=== PATIENT | female | born 1990 | race Two or more races ===

== ENCOUNTER 2024-04-16 00:39 | Emergency (ER) | payer MEDICAID, OTHER ==
[~2024-04-16] VITALS: Ht 154.9 cm; Wt 87.6 kg
[2024-04-16 01:14] LABS: Urine Bacteria None Seen /hpf (None Seen)
[2024-04-16 01:46] LABS: Urine Blood Negative /uL (Negative); Urine Clarity Clear (Clear); Urine Color Yellow (Yellow); Urine Mucus FEW (None Seen); Urine Protein, UAD TRACE (Negative); Urine Specific Gravity 1.021 (1.001-1.035); Urine Urobilinogen Normal (Negative); Urine WBC 5 /hpf (0 - 5)
[2024-04-16] MEDS: PANTOPRAZOLE 40 MG/10 ML VIAL INJ IV ONE (03:15)
[2024-04-16] MEDS: ONDANSETRON HCL 4 MG/2 ML VIAL IV ONE (03:15)
[2024-04-16 03:29] LABS: Basophils # (auto) 0.1 10 ^3/uL (0-0.2); Basophils % (auto) 0.4 % (0.0-2.0); Eosinophils # (auto) 0 10 ^3/uL (0-0.8); Eosinophils % (auto) 0.1 % (0.0-7.0); Hematocrit 39.8 % (36.0-46.0); Lymphocytes # (auto) 1.6 10 ^3/uL (0.4-5.4); Lymphocytes % (auto) 10.5 % (10.0-50.0); Mean Corpuscular Hemoglobin 31.2 pg (28.0-32.0); Monocytes # (auto) 0.8 10 ^3/uL (0-1.3); Monocytes % (auto) 5.3 % (0.0-12.0); Neutrophils # (auto) 12.6 10 ^3/uL (1.6-8.6); Neutrophils % (auto) 83.7 % (37.0-80.0); Nucleated Red Blood Cells % 0.1 %; Red Blood Cells 4.48 10^6/uL (4.0-5.20); Red Cell Distribution Width 12.9 % (11.8-14.3)
[2024-04-16] MEDS: SODIUM CHLORIDE 0.9% 1,000 ML IV ONE (03:40)
[2024-04-16 03:43] VITALS: TEMP 98.3; O2SAT 96
[2024-04-16 03:45] LABS: Alanine Aminotransferase 122 U/L (7-40); Albumin 4.5 g/dL (3.2-4.8); Alkaline Phosphatase 99 U/L (46-116); Anion Gap 8 (5-15); Aspartate Aminotransferase 208 U/L (13-40); BUN/Creatinine Ratio 11.8 (10.0-20.0); Bilirubin, Total 0.9 mg/dL (0.2-1.0); Blood Urea Nitrogen 10 mg/dL (9-23); Calcium 9.6 mg/dL (8.7-10.4); Carbon Dioxide 29 mmol/L (20-30); Chloride 105 mmol/L (98-107); Glucose 105 mg/dL (74-106); Lipase 37 U/L (12-53); Potassium 4.3 mmol/L (3.5-5.1); Sodium 142 mmol/L (136-145); Total Protein 7.1 g/dL (5.7-8.2)
[2024-04-16] MEDS: MORPHINE SULFATE 4 MG/ML SYR/VIAL IV ONE ×2 (04:57→05:00)
[2024-04-16] MEDS: IOHEXOL 300 MG/ML 100ML BOTTLE IJ ONE (05:04)
[2024-04-16 05:27] VITALS: BP 111/69; PULSE 63; RESP 18
== END 2024-04-16 06:02 | disposition home or self-care (01) ==
LOC: ER 00:39
DX: K52.9 Noninfective gastroenteritis and colitis, unspecified (principal); R74.01 Elevation of levels of liver transaminase levels; R10.13 Epigastric pain; R11.0 Nausea; Z98.890 Other specified postprocedural states
CPT/HCPCS: 36415; 74177; 80053; 81001; 81025; 83690; 85025; 96361; 96374; 96375; 99285; J2270; J2405; J2470; J7030; Q9967

== ENCOUNTER 2025-05-10 09:37 | Inpatient (IN) | payer MEDICAID ==
[~2025-05-10] VITALS: Ht 154.9 cm; Wt 93.1 kg
--- NOTE | 2025-05-10 10:00 | ED.PDOC ---
History of Present Illness HPI Comments This is a 35-year-old female without any significant past medical history presented to the ER with a chief complaint of intermittent abdominal pain and left flank pain for last 6 days prior to this visit. The patient states that abdominal pain started 6 days ago which is burning pain, diffuse in nature, radiates to the left flank, 5/10 aggravated after eating without any relieving factors and associated with nausea and loose stool. She also mentioned that she had same episode last year needed hospital admission but she did not remember the diagnosis. She denies fever, chills, shortness of breath, vomiting, dysuria, hematuria, recent traveling or any positive sick contact. Chief Complaint: Flank Pain Time Seen by MD: 09:41 Allergies: Coded Allergies: NO KNOWN ALLERGIES (Unverified , 04/16/24) Information Source: Patient Mode of Arrival: Ambulatory Severity: Mild Timing: Days Duration: Since onset Prehospital treatment: None Past Medical History PAST MEDICAL HISTORY: Denies Past Medical History (Other): Cholelithiasis Surgical History: WIRE TINNER History: No Pertinent WIRE TINNER History Family History Family History: Reviewed,noncontributory to illness, No family hx of Cancer, No family hx of DM, No family hx of Heart chrystal, No family hx of HTN, No family hx ofKidney chrystal, No family hx of Liver chrystal, No family hx of Lung chrystal, No family hx of Stroke Social History Smoker: Non-Smoker Alcohol: Denies ETOH Use Drugs: Denies Drug Use Lives In: Home Constitutional: denies: chills, diaphoresis, fatigue, fever, malaise, sweats, weakness, others EENTM: denies: blurred vision, double vision, ear bleeding, ear discharge, ear drainage, ear pain, ear ringing, eye pain, eye redness, hearing loss, mouth pain, mouth swelling, nasal discharge, nose bleeding, nose congestion, nose pain, photophobia, tearing, throat pain, throat swelling, voice changes, others Respiratory: denies: cough, hemoptysis, orthopnea, SOB at rest, shortness of breath, SOB with excertion, stridor, wheezing, others Cardiovascular: denies: chest pain, dizzy spells, diaphoresis, Dyspnea on exertion, edema, irregular heart beat, left arm pain, lightheadedness, palpitations, PND, syncope, others Gastrointestinal: reports: abdominal pain, nausea, rectal bleeding; denies: abd omen distended, blood streaked bowels, constipated, diarrhea, dysphagia, difficulty swallowing, hematemesis, melena, poor appetite, poor fluid intake, rectal pain, vomiting, others Genitourinary: denies: abnormal vagina bleeding, burning, dyspareunia, dysuria, flank pain, frequency, hematuria, incontinence, pain, , vagina discharge, urgency, others Neurological: denies: dizziness, fainting, headache, left sided numbness, left sided weakness, numbness, paresthesia, pre-existing deficit, right sided numbness, right sided weakness, seizure, speech problems, tingling, tremors, weakness, others Musculoskeletal: denies: back pain, gout, joint pain, joint swelling, muscle pain, muscle stiffness, neck pain, others Integumetry: denies: bruises, change in color, change in hair/nails, dryness, laceration, lesions, lumps, rash, wounds, others Allergic/Immunocompromised: denies: Difficulty Healing, Frequent Infections, Hives, Itching, others Hematologic/Lymphatic: denies: anemia, blood clots, easy bleeding, easy bruising, swollen glands, others Endocrine: denies: excessive hunger, excessive sweating, excessive thirst, excessive urination, flushing, intolerance to cold, intolerance to heat, unexplained weight gain, unexplained weight loss, others Psychiatric: denies: anxiety, bipolar disorder, depression, hopeless, panic disorder, schizophrenia, sleepless, suicidal, others Physical Exam General Appearance: Normal HEENT: Normal ENT Inspection, Pharynx Normal, TMs Normal Neck: Full Range of Motion, Non-Tender, Normal, Normal Inspection Respiratory: Chest Non-Tender, Lungs Clear, No Accessory Muscle Use, No Respiratory Distress, Normal Breath Sounds Cardiovascular: No Edema, No JVD, No Murmur, No Gallop, Normal Peripheral Pulses, Regular Rate/Rhythm Breast Exam: Deferred Gastrointestinal: No Organomegaly, Non Tender, No Pulsatile Mass, Normal Bowel Sounds, Soft Genitalia: Deferred Pelvic: Deferred Rectal: Deferred Extremities: No calf tenderness, Normal capillary refill, Normal inspection, Normal range of motion, Non-tender, No pedal edema 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 Was a procedure done?: No Differential Dx Considerations may include: GERD, Gastritis, PUD, autoimmune hepatitis, primary biliary cholangitis, pancreatitis, kidney stone, PMD X-Ray, Labs, Meds, VS Vital Signs Date Time Temp Pulse Resp B/P (MAP) Pulse Ox O2 Delivery O2 Flow Rate FiO2 05/10/25 09:42 98.0 84 15 122/78 95 98.0 Lab Test 05/10/25 10:22 05/10/25 10:07 Range/Units White Blood Count 6.8 4.4-10.8 10^3/uL Red Blood Count 4.40 4.0-5.20 10^6/uL Hemoglobin 13.9 12.2-16.2 g/dL Hematocrit 40.0 36.0-46.0 % Mean Corpuscular Volume 90.8 80.0-100.0 fL Mean Corpuscular Hemoglobin 31.7 28.0-32.0 pg Mean Corpuscular Hemoglobin Concent 34.8 32.0-36.0 g/dL Red Cell Distribution Width 13.1 11.8-14.3 % Platelet Count 308 140-450 10^3/uL Mean Platelet Volume 8.3 6.9-10.8 fL Neutrophils (%) (Auto) 76.5 37.0-80.0 % Lymphocytes (%) (Auto) 16.0 10.0-50.0 % Monocytes (%) (Auto) 6.5 0.0-12.0 % Eosinophils (%) (Auto) 0.5 0.0-7.0 % Basophils (%) (Auto) 0.5 0.0-2.0 % Neutrophils # (Auto) 5.2 1.6-8.6 10 ^3/uL Lymphocytes # (Auto) 1.1 0.4-5.4 10 ^3/uL Monocytes # (Auto) 0.4 0-1.3 10 ^3/uL Eosinophils # (Auto) 0 0-0.8 10 ^3/uL Basophils # (Auto) 0 0-0.2 10 ^3/uL Nucleated Red Blood Cells 0.0 % Sodium Level 137 136-145 mmol/L Potassium Level 3.9 3.5-5.1 mmol/L Chloride Level 107 98-107 mmol/L Carbon Dioxide Level 19 L 20-31 mmol/L Anion Gap 11 5-15 Blood Urea Nitrogen 6 L 9-23 mg/dL Creatinine 0.80 0.550-1.02 mg/dL Glomerular Filtration Rate Calc 99 >90 mL/min BUN/Creatinine Ratio 7.5 L 10.0-20.0 Serum Glucose 98 74-106 mg/dL Calcium Level 8.9 8.7-10.4 mg/dL Magnesium Level 2.2 1.6-2.6 mg/dL Total Bilirubin 2.6 H 0.2-1.0 mg/dL Aspartate Amino Transferase (AST) 576 H 13-40 U/L Alanine Aminotransferase (ALT) 754 H 7-40 U/L Alkaline Phosphatase 173 H 46-116 U/L Total Protein 7.1 5.7-8.2 g/dL Albumin 4.8 3.2-4.8 g/dL Lipase 42 12-53 U/L Anti-Nuclear Antibody Screen Pending Hepatitis A Antibody Total Pending Hepatitis B Surface Antigen Pending Hepatitis B Surface Antibody Pending Hepatitis B Core Total Antibody Pending Hepatitis C Antibody Pending Urine Color Dark-yellow Yellow Urine Clarity Clear Clear Urine pH 6.0 5.0-9.0 Urine Specific [place] 1.027 1.001-1.035 Urine Protein Negative Negative Urine Ketones Negative Negative Urine Blood 1+ H Negative /uL Urine Nitrite Negative Negative Urine Bilirubin 2+ H Negative Urine Urobilinogen 3 H Negative mg/dL Urine Leukocyte Esterase Trace Negative /uL Urine RBC 16 0 - 4 /hpf Urine Microscopic WBC 1 0-5 /HPF Urine Squamous Epithelial Cells Few <5 /hpf Urine Bacteria None seen None Seen /hpf Urine Glucose Normal Normal mg/dL X-Ray, Labs, Meds, VS Comment ORDERING PHYSICIAN: SAV ANTON RESIDENT PROCEDURE(s): ABPL - CT AB PEL WO CON-NO ORAL OR IV REASON: Left flank pain ORDER NUMBER(s): [id number], ACCESSION NUMBER(s): [id number] CT CT AB PEL WO CON-NO ORAL OR IV INDICATION: Left flank pain EXAM DATE: 05/10/2025 09:54 AM COMPARISON: CT CT AB PEL WITH IV CON ONLY on DOS: 04/16/24 RADIATION DOSE: CTDIvol: 19.04 mGy, DLP: 1068.65 mGy*cm PROCEDURE: Helical CT images were obtained of the abdomen and pelvis without IV contrast Sagittal and coronal reconstructions are provided. ORAL CONTRAST: None. ADDITIONAL IMAGES / REFORMATS: None All CT scans at this medical facility are performed using dose modulation techniques as appropriate to a performed exam including the following: Automated exposure control was utilized; adjustment of the MA and/or KV according to patient size; and use of iterative reconstruction technique. FINDINGS: LUNG BASE: Normal. LIVER: Normal. GALLBLADDER AND BILIARY TREE: No calcified gallstones. Normal caliber wall. No intra- or extrahepatic biliary ductal dilation. PANCREAS: Normal. SPLEEN: Normal. BOWEL: Normal. Normal appendix. ADRENALS: Normal. KIDNEYS AND URETER: Normal. BLADDER: Normal. REPRODUCTIVE ORGANS: Normal. LYMPH NODES:No lymphadenopathy. PERITONEUM: No ascites or free air. No other fluid collection. VESSELS: Scattered atherosclerotic calcifications are noted. RETROPERITONEUM: Normal. ABDOMINAL WALL: Normal. BONES: Scattered osseous degenerative changes are noted. IMPRESSION: No acute intraabdominal abnormality. No kidney stones. Images Reviewed?: Images reviewed and evaluated by me Time of 1ST Reevaluation: 13:00 Reevaluation 1ST: Unchanged Patient Education/Counseling: Diagnosis, Treatment Family Education/Counseling: No Family Present Comments This is a 35-year-old female presented to the ED with a chief complaint of intermittent diffuse abdominal pain, left flank pain and nausea Physical exam did not reveal any abnormality CBC was unremarkable CMP demonstrated elevated bilirubin, moderately elevated AST, ALT and mildly e levated ALP possible hepatocellular pattern CT abdomen pelvis without contrast revealed normal study Pending hepatitis panel, GERALDINE and ultrasound of the right upper quadrant The patient will need inpatient admission for further evaluation and management SEPSIS Sepsis Screen Date sepsis recognized/suspect: May 10, 2025 Time Sepsis recognized/suspect: 0942 Recent Procedure: No On Antibiotic Therapy: No Respiratory Rate >20: No Heart Rate >90: No Temp<36 C (96.8 F) or >38.3 C: No SBP <90 or MAP <65 mmHG: No New Acute Mental Status Change: No Is the patient on CPAP, BIPAP,: No Physician Orders Ct Ab Pel Wo Con-No Oral Or Iv (05/10/25 09:54) Abdomen Limited (05/10/25 11:49) Comprehensive Hepatitis Panel (05/10/25 11:56) Geraldine; Direct (05/10/25 11:56) Vital Signs Date Time Temp Pulse Resp B/P (MAP) Pulse Ox O2 Delivery O2 Flow Rate FiO2 05/10/25 09:42 98.0 84 15 122/78 95 98.0 Laboratory Tests Test 05/10/25 10:22 White Blood Count 6.8 10^3/uL (4.4-10.8) Departure 1 Departure Time of Disposition: 12:27 Impression: Primary Impression: Hepatitis Additional Impression: Cholelithiasis Disposition: ADMITTED INPATIENT Admit to: Med Surg Condition: Guarded Critical Care Note Critical Care Time?: No Stability Stability form required: SAV Delgado RESIDENT May 10, 2025 10:00
--- NOTE | 2025-05-10 10:30 | DVH ---
CT CT AB PEL WO CON-NO ORAL OR IV INDICATION: Left flank pain EXAM DATE: 05/10/2025 09:54 AM COMPARISON: CT CT AB PEL WITH IV CON ONLY on DOS: 04/16/24 RADIATION DOSE: CTDIvol: 19.04 mGy, DLP: 1068.65 mGy*cm PROCEDURE: Helical CT images were obtained of the abdomen and pelvis without IV contrast Sagittal and coronal reconstructions are provided. ORAL CONTRAST: None. ADDITIONAL IMAGES / REFORMATS: None All C T scans at this medical facility are performed using dose modulation techniques as appropriate to a p erformed exam including the following: Automated exposure control was utilized; adjustment of the MA and/or KV according to patient size; and use of iterative reconstruction technique. FINDINGS: LUNG BASE: Normal. LIVER: Normal. GALLBLADDER AND BILIARY TREE: No calcified gallstones. Normal caliber wall. No intra- or extrahepatic biliary ductal dilation. PANCREAS: Normal. SPLEEN: Normal. BOWEL: Normal. Normal appendix. ADRENALS: Normal. KIDNEYS AND URETER: Normal. BLADDER: Normal. REPRODUCTIVE ORGANS: Normal. LYMPH NODES:No lymphadenopathy. PERITONEUM: No ascites or free air. No other fluid collection. VESSELS: Scattered atherosclerotic calcifications are noted. RETROPERITONEUM: Normal. ABDOMINAL WALL: Normal. BONES: Scattered osseous degenerative changes are noted. IMPRESSION: No acute intraabdominal abnormality. No kidney stones.
[2025-05-10 10:43] LABS: Urine Protein, UAD Negative (Negative)
[2025-05-10 10:45] LABS: Hematocrit 40.0 % (36.0-46.0); Hemoglobin 13.9 g/dL (12.2-16.2); Mean Corpuscular Hemoglobin 31.7 pg (28.0-32.0); Mean Corpuscular Volume 90.8 fL (80.0-100.0); Nucleated Red Blood Cells % 0.0 %
[2025-05-10 10:54] LABS: Albumin 4.8 g/dL (3.2-4.8); Anion Gap 11 (5-15); BUN/Creatinine Ratio 7.5 (10.0-20.0); Calcium 8.9 mg/dL (8.7-10.4); Chloride 107 mmol/L (98-107); Glucose 98 mg/dL (74-106); Magnesium 2.2 mg/dL (1.6-2.6); Potassium 3.9 mmol/L (3.5-5.1); Sodium 137 mmol/L (136-145); Total Protein 7.1 g/dL (5.7-8.2)
[2025-05-10 10:55] LABS: Alanine Aminotransferase 754 U/L (7-40); Alkaline Phosphatase 173 U/L (46-116); Bilirubin, Total 2.6 mg/dL (0.2-1.0); Blood Urea Nitrogen 6 mg/dL (9-23); Carbon Dioxide 19 mmol/L (20-31)
[2025-05-10 11:05] LABS: Lipase 42 U/L (12-53)
--- NOTE | 2025-05-10 13:01 | DVH ---
INDICATION: Abdominal pain TECHNIQUE: Multiple real-time sonographic images of the abdomen were obtained. COMPARISON: None FINDINGS: The liver is homogenous in echogenicity. The liver measures 13cm. No intrahepatic biliary ductal dilatation is noted. The gallbladder wall measures 0.3 cm and is unremarkable. Gallstones are noted. The common duct jay ures 0.6 cm and is unremarkable. No pericholecystic fluid is noted. The right kidney measures 10cm. No hydronephrosis. The pancreas is not well visualized due to obscuration from bowel gas. The visualized portions of the IVC and aorta are grossly unremarkable. IMPRESSION: Gallstones.
[2025-05-10] MEDS ORDERED: HYDROcodone-ACET 5/325MG TAB PO PRN (16:00)
[2025-05-10] MEDS ORDERED: ACETAMINOPHEN 325 MG TAB PO PRN (16:00)
[2025-05-10] MEDS ORDERED: DOCUSATE SOD 100 MG CAP PO PRN (16:00)
--- NOTE | 2025-05-10 16:24 | DVHHP2 ---
History of Present Illness Reason for Visit: Abdominal pain History of Present Illness Cadence Jackson is a 35-year-old female with past medical history of PCOS, who came to the hospital for abdominal and back pain. Patient states she began experiencing abdominal and back pain last (05/05/2025). The pain was intermittent, worse after eating, with associated nausea. Patient also states she has been experiencing bloating, her urine has become an orange color, and she is having frequency, denies any pain with urination. She came to the hospital today due to her symptoms increasing. In ER her bilirubin and liver enzymes are elevated. Ultrasound of abdomen shows cholelithiasis. Patient was admitted in February 2024 for similar complaints. Her liver enzymes were elevated at that times as but, not as elevated as they are now. At that time she was told to follow up with GI as an outpatient. She went to her primary care provider, who did labs, then told her she was fine and would not give her the GI referral. She has sense changed primary care providers and has an appointment later this month. GI: Other (PCOS) Past Surgical History: (x 1) Smoke: No ALCOHOL: none Drugs: None Lives: with Family Domestic Violence: Neg Review of Systems Constitutional: No: Fever, Chills, Sweats, Weakness, Malaise, Other Eyes: No: Pain, Vision change, Conjunctivae inflammation, Eyelid inflammation, Other, Redness ENT: No: Ear pain, Ear discharge, Nose pain, Nose discharge, Nose congestion, Mouth pain, Mouth swelling, Throat pain, Throat swelling, Other Respiratory: No: Cough, Dry, Shortness of breath, SOB with excertion, Wheezing, Hemoptysis, Pleuritic Pain, Sputum, Wheezing, Other Cardiovascular: No: Chest Pain, Palpitations, Orthopnea, Paroxysmal Noc. Dyspnea, Edema, Lt Headedness, Other Gastrointestinal: Nausea, Abdominal Pain, Other (bloating); No: Vomiting, Diarrhea, Constipation, Melena, Hematochezia Genitourinary: No Dysuria, No Frequency, No Incontinence, No Hematuria, No Retention; Other (orange urine) Musculoskeletal: No: other, neck pain, shoulder pain, arm pain, back pain, hand pain, leg pain, foot pain Skin: No: Rash, Lesions, Jaundice, Bruising, Other Neurological: No: Weakness, Numbness, Incoordination, Change in speech, Confusion, Seizures, Other Allergies: Coded Allergies: NO KNOWN ALLERGIES (Unverified , 04/16/24) Medications Current Medications Medications Dose Ordered Sig/[place] Route Start Time Stop Time Status Last Admin Dose Admin Acetaminophen/ Hydrocodone Bitart 1 tab Q4HP PRN PO 05/10/25 16:00 UNV Exam Vital Signs Vital Signs Date Time Temp Pulse Resp B/P (MAP) Pulse Ox O2 Delivery O2 Flow Rate FiO2 05/10/25 09:42 98.0 84 15 122/78 95 98.0 General Appearance: Alert, Oriented X3, Cooperative, mild distress HEENT: Atraumatic, PERRLA, Mucous membr. moist/pink Respiratory: Clear to auscultation, Normal air movement Cardiovascular: Regular rate, Normal S1, Normal S2 Abdominal: Normal bowel sounds, Other (abdominal pain) Extremities: No clubbing, No cyanosis, No edema, Normal pulses, No tenderness/swelling Skin: No rashes, No breakdown, No significant lesion Neuro: Normal speech, Strength at 5/5 X4 ext Psych/Mental Status: Mental status NL, Mood NL Labs/Xrays Labs Test 05/10/25 14:27 05/10/25 10:22 05/10/25 10:07 Range/Units White Blood Count 6.8 4.4-10.8 10^3/uL Red Blood Count 4.40 4.0-5.20 10^6/uL Hemoglobin 13.9 12.2-16.2 g/dL Hematocrit 40.0 36.0-46.0 % Mean Corpuscular Volume 90.8 80.0-100.0 fL Mean Corpuscular Hemoglobin 31.7 28.0-32.0 pg Mean Corpuscular Hemoglobin Concent 34.8 32.0-36.0 g/dL Red Cell Distribution Width 13.1 11.8-14.3 % Platelet Count 308 140-450 10^3/uL Mean Platelet Volume 8.3 6.9-10.8 fL Neutrophils (%) (Auto) 76.5 37.0-80.0 % Lymphocytes (%) (Auto) 16.0 10.0-50.0 % Monocytes (%) (Auto) 6.5 0.0-12.0 % Eosinophils (%) (Auto) 0.5 0.0-7.0 % Basophils (%) (Auto) 0.5 0.0-2.0 % Neutrophils # (Auto) 5.2 1.6-8.6 10 ^3/uL Lymphocytes # (Auto) 1.1 0.4-5.4 10 ^3/uL Monocytes # (Auto) 0.4 0-1.3 10 ^3/uL Eosinophils # (Auto) 0 0-0.8 10 ^3/uL Basophils # (Auto) 0 0-0.2 10 ^3/uL Nucleated Red Blood Cells 0.0 % Sodium Level 137 136-145 mmol/L Potassium Level 3.9 3.5-5.1 mmol/L Chloride Level 107 98-107 mmol/L Carbon Dioxide Level 19 L 20-31 mmol/L Anion Gap 11 5-15 Blood Urea Nitrogen 6 L 9-23 mg/dL Creatinine 0.80 0.550-1.02 mg/dL Glomerular Filtration Rate Calc 99 >90 mL/min BUN/Creatinine Ratio 7.5 L 10.0-20.0 Serum Glucose 98 74-106 mg/dL Calcium Level 8.9 8.7-10.4 mg/dL Magnesium Level 2.2 1.6-2.6 mg/dL Total Bilirubin 2.6 H 0.2-1.0 mg/dL Aspartate Amino Transferase (AST) 576 H 13-40 U/L Alanine Aminotransferase (ALT) 754 H 7-40 U/L Alkaline Phosphatase 173 H 46-116 U/L Total Protein 7.1 5.7-8.2 g/dL Albumin 4.8 3.2-4.8 g/dL Lipase 42 12-53 U/L Urine Color Dark-yellow Yellow Urine Clarity Clear Clear Urine pH 6.0 5.0-9.0 Urine Specific [place] 1.027 1.001-1.035 Urine Protein Negative Negative Urine Ketones Negative Negative Urine Blood 1+ H Negative /uL Urine Nitrite Negative Negative Urine Bilirubin 2+ H Negative Urine Urobilinogen 3 H Negative mg/dL Urine Leukocyte Esterase Trace Negative /uL Urine RBC 16 0 - 4 /hpf Urine Microscopic WBC 1 0-5 /HPF Urine Squamous Epithelial Cells Few <5 /hpf Urine Bacteria None seen None Seen /hpf Urine Glucose Normal Normal mg/dL CT CT AB PEL WO CON-NO ORAL OR IV FINDINGS: LUNG BASE: Normal. LIVER: Normal. GALLBLADDER AND BILIARY TREE: No calcified gallstones. Normal caliber wall. No intra- or extrahepatic biliary ductal dilation. PANCREAS: Normal. SPLEEN: Normal. BOWEL: Normal. Normal appendix. ADRENALS: Normal. KIDNEYS AND URETER: Normal. BLADDER: Normal. REPRODUCTIVE ORGANS: Normal. LYMPH NODES:No lymphadenopathy. PERITONEUM: No ascites or free air. No other fluid collection. VESSELS: Scattered atherosclerotic calcifications are noted. RETROPERITONEUM: Normal. ABDOMINAL WALL: Normal. BONES: Scattered osseous degenerative changes are noted. IMPRESSION: No acute intraabdominal abnormality. No kidney stones. TECHNIQUE: Multiple real-time sonographic images of the abdomen were obtained. FINDINGS: The liver is homogenous in echogenicity. The liver measures 13cm. No intrahepatic biliary ductal dilatation is noted. The gallbladder wall measures 0.3 cm and is unremarkable. Gallstones are noted. The common duct measures 0.6 cm and is unremarkable. No pericholecystic fluid is noted. The right kidney measures 10cm. No hydronephrosis. The pancreas is not well visualized due to obscuration from bowel gas. The visualized portions of the IVC and aorta are grossly unremarkable. IMPRESSION: Gallstones. SEPSIS Sepsis Screen Date sepsis recognized/suspect: May 10, 2025 Time Sepsis recognized/suspect: 941 Recent Procedure: No On Antibiotic Therapy: No Respiratory Rate >20: No Heart Rate >90: No Temp<36 C (96.8 F) or >38.3 C: No SBP <90 or MAP <65 mmHG: No New Acute Mental Status Change: No Is the patient on CPAP, BIPAP,: No Physician Orders Ct Ab Pel Wo Con-No Oral Or Iv (05/10/25 09:54) Abdomen Limited (05/10/25 11:49) Comprehensive Hepatitis Panel (05/10/25 11:56) Geraldine; Direct (05/10/25 11:56) Nm Hida Scan (05/10/25 15:53) Admit (05/10/25 15:53) Code Status (05/10/25 15:53) Hydrocodone-Acet 5/325mg Tab (Gerry 5/32 (05/10/25 16:00) Ondansetron Hcl (Zofran) (05/10/25 16:00) Docusate Sodium Capsule (Colace Capsule) (05/10/25 16:00) Complete Blood Count (05/11/25 04:00) Comprehensive Metabolic Panel (05/11/25 04:00) Condition: Serious (05/10/25 15:53) Acetaminophen Tablet (Tylenol Tablet) (05/10/25 16:00) * Gi Dvh Tool Clerk (05/10/25 15:55) Vital Signs Date Time Temp Pulse Resp B/P (MAP) Pulse Ox O2 Delivery O2 Flow Rate FiO2 05/10/25 09:42 98.0 84 15 122/78 95 98.0 Laboratory Tests Test 05/10/25 10:22 White Blood Count 6.8 10^3/uL (4.4-10.8) Assessment/Plan Assessment/Plan Assessment: Cholelithiasis, Transaminitis, Hyperbilirubinemia, Possible hepatitis, Plan: Admit to Med-Surg, GI consult, HIDA scan, Clear liquid diet, IV hydration, Plan discussed with: Patient My Orders Orders - AMINATA GÓMEZ Procedure Category Date Status Time Nm Hida Scan NM 05/10/25 Logged 15:53 Admit ADMIT 05/10/25 Transmitted 15:53 Code Status CODE 05/10/25 Transmitted 15:53 Hydrocodone-Acet PHA 05/10/25 Transmitted 5/325mg Tab (Gerry 16:00 Ondansetron Hcl PHA 05/10/25 Transmitted (Zofran) 16:00 Docusate Sodium PHA 05/10/25 Transmitted Capsule (Colace 16:00 Complete Blood Count LAB 05/11/25 Verified 04:00 Comprehensive LAB 05/11/25 Verified Metabolic Panel 04:00 Condition: Serious VINCENT 05/10/25 Transmitted 15:53 Acetaminophen Tablet PHA 05/10/25 Transmitted (Tylenol Tablet) 16:00 * Gi Dvh Tool Clerk CONS 05/10/25 Verified 15:55 Date of Service: May 10, 2025 Billing Provider: AMINATA GÓMEZ Common Visit Codes: [id number] INP/OBS CARE (MOD) AMINATA GÓMEZ May 10, 2025 16:23
[2025-05-10 17:38] VITALS: BP 119/61; PULSE 67; TEMP 98.1; O2SAT 99
[2025-05-10] MEDS: SODIUM CHLORIDE 0.9% 1,000 ML IV ONE (18:06)
[2025-05-10 23:06] VITALS: BP 123/78; PULSE 69; RESP 18; TEMP 98.2; O2SAT 98
[2025-05-10] MEDS: ONDANSETRON HCL 4 MG/2 ML VIAL IV PRN (23:46)
[2025-05-11 04:39] LABS: Hematocrit 38.1 % (36.0-46.0); Hemoglobin 13.4 g/dL (12.2-16.2); Mean Corpuscular Hemoglobin 31.8 pg (28.0-32.0); Mean Corpuscular Volume 90.1 fL (80.0-100.0); Nucleated Red Blood Cells % 0.1 %
[2025-05-11 04:47] LABS: Alanine Aminotransferase 570 U/L (7-40); Albumin 4.4 g/dL (3.2-4.8); Alkaline Phosphatase 163 U/L (46-116); Anion Gap 9 (5-15); BUN/Creatinine Ratio 8.0 (10.0-20.0); Bilirubin, Total 1.4 mg/dL (0.2-1.0); Blood Urea Nitrogen 6 mg/dL (9-23); Calcium 8.7 mg/dL (8.7-10.4); Carbon Dioxide 24 mmol/L (20-31); Chloride 108 mmol/L (98-107); Glucose 81 mg/dL (74-106); Potassium 4.0 mmol/L (3.5-5.1); Sodium 141 mmol/L (136-145); Total Protein 6.9 g/dL (5.7-8.2)
[2025-05-11 06:14] VITALS: BP 125/82; PULSE 66; RESP 16; TEMP 98.7; O2SAT 100
[2025-05-11 09:00] VITALS: BP 117/74; PULSE 66; RESP 16; TEMP 97.4; O2SAT 98
[2025-05-11 11:07] LABS: Hepatitis A Total Antibody Positive (Negative); Hepatitis B Surface Antigen Negative (Negative); Hepatitis C Antibody Negative (Negative)
[2025-05-11 13:00] VITALS: BP 114/75; PULSE 74; RESP 20; TEMP 97; O2SAT 98
--- NOTE | 2025-05-11 13:05 | DVH ---
Procedure: NM NM HIDA SCAN Exam Date: 05/11/2025 08:37 AM Clinical History: gallstones, pain, N/V Comparison Study: None Nuclear Medicine Hepatobiliary Scan. Technique: Following the intravenous administration of 6 mCi of technetium 99m labeled Choletec multiple planar abdominal planar images were obtained in anterior projection in 5 minute intervals for45 minutes . Ri ght lateral images were obtained at 45 minutes after injection. Findings: The liver appears grossly normal in size. There is no abnormal persistence of the cardiac or blood po ol activity. There is prompt visualization and excretion of activity into the small bowel. Activity in the gallbladder is seen on delayed films suggesting partial obstruction Impression: 1. Delayed imaging of gallbladder suggesting partial obstruction possibly from chronic cholecystitis. May consider MRCP for further evaluation
--- NOTE | 2025-05-11 14:01 | DVHPN2 ---
Subjective PATIENT CONTINUES TO REPORT HAVING SOME RIGHT BACK PAIN WELL ABDOMINAL PAIN Reviewed: Care Plan, H&P, Labs Changes from previous H/P or p: No Changes General: Per HPI Eyes: No Pain, No Vision change, No Conjunctivae inflammation, No Eyelid inflammation, No Other, No Redness ENT: No Ear pain, No Ear discharge, No Nose pain, No Nose discharge, No Nose congestion, No Mouth pain, No Mouth swelling, No Throat pain, No Throat swelling, No Other Cardiovascular: No Chest Pain, No Palpitations, No Orthopnea, No Paroxysmal Noc. Dyspnea, No Edema, No Lt Headedness, No Other Respiratory: No Cough, No Dry, No Shortness of breath, No SOB with excertion, No Wheezing, No Hemoptysis, No Pleuritic Pain, No Sputum, No Other Gastrointestinal: Nausea; No Vomiting; Abdominal Pain; No Diarrhea, No Constipation, No Melena, No Hematochezia; Other (bloating) Genitourinary: No Dysuria, No Frequency, No Incontinence, No Hematuria, No Retention; Other (orange urine) Musculoskeletal: No other, No neck pain, No shoulder pain, No arm pain, No back pain, No hand pain, No leg pain, No foot pain Skin: No Rash, No Lesions, No Jaundice, No Bruising, No Other Objective Vitals Vital Signs Date Time Temp Pulse Resp B/P (MAP) Pulse Ox O2 Delivery O2 Flow Rate FiO2 05/11/25 13:00 97.0 74 20 114/75 (88) 98 97.0 05/11/25 07:30 Room Air* 0 21 General Appearance: Alert, Oriented X3, Cooperative HEENT: Atraumatic, PERRLA Cardiovascular: Normal S1, Normal S2 Abdomen: Normal bowel sounds, Soft, No tenderness, No hepatospenomegaly Back: Flank Tenderness Musculoskeletal: Normal sensory function, Normal motor function Skin: Dry, Intact Psych/Mental Status: Mental status NL, Mood NL Medications Current Medications Medications Dose Ordered Sig/[place] Route Start Time Stop Time Status Last Admin Dose Admin Acetaminophen/ Hydrocodone Bitart 1 tab Q4HP PRN PO 05/10/25 16:00 Ondansetron HCl 4 mg Q4HP PRN IV 05/10/25 16:00 05/10/25 23:46 4 MG Docusate Sodium 100 mg BIDPRN PRN PO 05/10/25 16:00 Acetaminophen 650 mg Q6HP PRN PO 05/10/25 16:00 Sodium Chloride 1,000 ml @ 75 mls/hr [id number] IV 05/11/25 14:00 UNV Laboratory Results Laboratory Tests 05/11/25 03:50 Chemistry Test 05/11/25 03:50 Albumin 4.4 g/dL (3.2-4.8) Calcium Level 8.7 mg/dL (8.7-10.4) Total Protein 6.9 g/dL (5.7-8.2) LFT Test 05/11/25 03:50 Alanine Aminotransferase (ALT) 570 U/L (7-40) H Alkaline Phosphatase 163 U/L (46-116) H Aspartate Amino Transferase (AST) 291 U/L (13-40) H Total Bilirubin 1.4 mg/dL (0.2-1.0) H Urinalysis Test 05/10/25 10:07 Urine Color Dark-yellow (Yellow) Urine Clarity Clear (Clear) Urine pH 6.0 (5.0-9.0) Urine Specific [place] 1.027 (1.001-1.035) Urine Protein Negative (Negative) Urine Ketones Negative (Negative) Urine Blood 1+ /uL (Negative) H Urine Nitrite Negative (Negative) Urine Bilirubin 2+ (Negative) H Urine Urobilinogen 3 mg/dL (Negative) H Urine Leukocyte Esterase Trace /uL (Negative) Urine RBC 16 /hpf (0 - 4) Urine Microscopic WBC 1 /HPF (0-5) Urine Squamous Epithelial Cells Few /hpf (<5) Urine Bacteria None seen /hpf (None Seen) Urine Glucose Normal mg/dL (Normal) Labs and/or images reviewed: Labs reviewed by me, Image(s) reviewed by me Assessment/Plan Assessment/Plan Impression: -cholelithiasis, rule out choledocholithiasis -obesity -PCOS -transaminitis,? Hepatitis Plan: -lipase normal which rules out gallbladder pancreatitis. Bilirubin significantly elevated with LFTs improving. Rule out CBD stone with MRCP -start IV hydration -start Flagyl -pain management -clear liquid diet -GI consultation -surgical consultation -repeat labs in a.m. Total time spent with patient discussing and formulating plan of care: 35 minutes. This medical document was created using an electronic medical record system with [employer] system. Although this document has been carefully reviewed, there may still be some phonetic and typographical errors. These areas are purely typographical due to imperfections of the software programs, and do not reflect any compromise in the patient's medical care. Plan discussed with: Patient, Other (RN) My Orders Orders - BRYNN ANAYA NP Procedure Category Date Status Time Mrcp Mri MRI 05/11/25 Logged 13:38 * Surgical Consult CONS 05/11/25 Transmitted Sodium Chloride 0.9% PHA 05/11/25 Logged 14:00 Comprehensive LAB 05/12/25 Verified Metabolic Panel 04:00 Complete Blood Count LAB 05/12/25 Verified 04:00 PTPTT LAB 05/12/25 Verified 04:00 Date of Service: May 11, 2025 Billing Provider: BRYNN ANAYA NP Common Visit Codes: [id number] INP/OBS CARE(HIGH) BRYNN ANAYA NP May 11, 2025 14:01
--- NOTE | 2025-05-11 14:18 | DVHINCON2 ---
GI Consult Consult Note GI consult note Date of Consultation: 2024 Chief Complaint: Cholelithiasis Referring Physician: Darryl GARZA H&P: 35-year-old female with past medical history of PCOS presented to hospital with abdominal and back pain. Patient is complaining of back pain that radiates to her upper back on and off for the past one year but worse at this time. No nausea or vomit. Denies alcohol. No history of hepatitis. Does not use Tylenol Past Medical History: PCOS Past Surgical History: Social History: NO smoking, drinking ETOH and use of illegal drugs. Family History: Noncontributory Review of Systems: Constitutional: no fever, chill, weight loss HEENT: no eye pain, no hearing loss, no oral lesion, no scleral icterus Heart: no chest pain, no chest pressure Lung: no cough, no dyspnea with exertion Abdomen: see HPI Physical exam: General: NAD, AAOX3 Chest: lung dick clear to auscultation Heart: RRR, no murmur Abdomen: no tenderness to palpation, +BS Labs: Labs Test 05/11/25 03:50 05/10/25 14:27 05/10/25 10:22 05/10/25 10:07 Range/Units White Blood Count 7.7 4.4-10.8 10^3/uL Red Blood Count 4.23 4.0-5.20 10^6/uL Hemoglobin 13.4 12.2-16.2 g/dL Hematocrit 38.1 36.0-46.0 % Mean Corpuscular Volume 90.1 80.0-100.0 fL Mean Corpuscular Hemoglobin 31.8 28.0-32.0 pg Mean Corpuscular Hemoglobin Concent 35.2 32.0-36.0 g/dL Red Cell Distribution Width 13.2 11.8-14.3 % Platelet Count 293 140-450 10^3/uL Mean Platelet Volume 8.4 6.9-10.8 fL Neutrophils (%) (Auto) 64.1 37.0-80.0 % Lymphocytes (%) (Auto) 27.8 10.0-50.0 % Monocytes (%) (Auto) 6.7 0.0-12.0 % Eosinophils (%) (Auto) 0.8 0.0-7.0 % Basophils (%) (Auto) 0.6 0.0-2.0 % Neutrophils # (Auto) 4.9 1.6-8.6 10 ^3/uL Lymphocytes # (Auto) 2.1 0.4-5.4 10 ^3/uL Monocytes # (Auto) 0.5 0-1.3 10 ^3/uL Eosinophils # (Auto) 0.1 0-0.8 10 ^3/uL Basophils # (Auto) 0 0-0.2 10 ^3/uL Nucleated Red Blood Cells 0.1 % Sodium Level 141 136-145 mmol/L Potassium Level 4.0 3.5-5.1 mmol/L Chloride Level 108 H 98-107 mmol/L Carbon Dioxide Level 24 20-31 mmol/L Anion Gap 9 5-15 Blood Urea Nitrogen 6 L 9-23 mg/dL Creatinine 0.75 0.550-1.02 mg/dL Glomerular Filtration Rate Calc 107 >90 mL/min BUN/Creatinine Ratio 8.0 L 10.0-20.0 Serum Glucose 81 74-106 mg/dL Calcium Level 8.7 8.7-10.4 mg/dL Total Bilirubin 1.4 H 0.2-1.0 mg/dL Aspartate Amino Transferase (AST) 291 H 13-40 U/L Alanine Aminotransferase (ALT) 570 H 7-40 U/L Alkaline Phosphatase 163 H 46-116 U/L Total Protein 6.9 5.7-8.2 g/dL Albumin 4.4 3.2-4.8 g/dL Beta HCG, Quantitative 0.0 L 1.5-4.2 mIU/mL Anti-Nuclear Antibody Screen Negative Negative Magnesium Level 2.2 1.6-2.6 mg/dL Lipase 42 12-53 U/L Hepatitis A Antibody Total Positive H Negative Hepatitis B Surface Antigen Negative Negative Hepatitis B Surface Antibody Negative Negative Hepatitis B Core Total Antibody Negative Negative Hepatitis C Antibody Negative Negative Urine Color Dark-yellow Yellow Urine Clarity Clear Clear Urine pH 6.0 5.0-9.0 Urine Specific [place] 1.027 1.001-1.035 Urine Protein Negative Negative Urine Ketones Negative Negative Urine Blood 1+ H Negative /uL Urine Nitrite Negative Negative Urine Bilirubin 2+ H Negative Urine Urobilinogen 3 H Negative mg/dL Urine Leukocyte Esterase Trace Negative /uL Urine RBC 16 0 - 4 /hpf Urine Microscopic WBC 1 0-5 /HPF Urine Squamous Epithelial Cells Few <5 /hpf Urine Bacteria None seen None Seen /hpf Urine Glucose Normal Normal mg/dL Imaging: CT abdomen pelvis IMPRESSION: No acute intraabdominal abnormality. No kidney stones. Abdominal ultrasound IMPRESSION: Gallstones. HIDA Impression: 1. Delayed imaging of gallbladder suggesting partial obstruction possibly from chronic cholecystitis. May consider MRCP for further evaluation Assessment: Abdominal pain Cholelithiasis Elevated LFTs Plan: Discussed with Dr. Zamorano MRCP MRI Monitor lab Surgical consult recommended We will continue to monitor patient Discussed plan with patient and Nick nurse practitioner Thank you for this consult Date of Service: May 11, 2025 Billing Provider: MAYUR BEEBE Common Visit Codes: CONSULT ONLY Consultation Codes: [id number] CONSULT <60MIN MAYUR BEEBE May 11, 2025 14:18
--- NOTE | 2025-05-11 15:13 | DVH ---
MRI MRCP MRI HISTORY: Rule out CBD stone COMPARISON: None PROCEDURE: Multiplanar multisequence MRI images were obtained of the abdomen without intravenous cont rast Additional MIPS were obtained of the biliary system. FINDINGS: Bile ducts: -Intrahepatic ducts: Non-dilated. -Extrahepatic ducts: Non-dilated. -Common bile duct: Non-dilated. -Filling defects: No filling defects -Stricture: None. Gallbladder: Multiple gallstones. Pancreas: Pancreatic duct: No ductal dilatation. Lesions: None. Liver: Signal intensity: Homogenous. Contour: Smooth. Size: Normal. Lesions: No focal liver lesion. ADDITIONAL FINDINGS: Lung base: Normal. Pancreas: Normal. Spleen:Normal. Bowel: Normal. Adrenal glands:Normal. Kidneys and ureters:Normal. Lymph nodes:Normal. Peritoneum:Normal. Vessels: Normal. Abdominal wall: Normal. Bone: No aggressive bone lesions IMPRESSION: Cholelithiasis without choledocholithiasis.
[2025-05-11] MEDS: SODIUM CHLORIDE 0.9% 1,000 ML IV SCH (16:34)
[2025-05-11 16:42] VITALS: BP 127/79; PULSE 63; RESP 18; TEMP 98.1; O2SAT 97
[2025-05-11 20:00] VITALS: PULSE 74; RESP 18; O2SAT 100
[2025-05-11 21:00] VITALS: BP 115/67; PULSE 74; RESP 18; TEMP 97.9; O2SAT 100
[2025-05-12 01:00] VITALS: BP 106/62; PULSE 63; RESP 18; TEMP 97.9; O2SAT 96
[2025-05-12 05:00] VITALS: BP 106/60; PULSE 60; RESP 18; TEMP 97.8; O2SAT 97
[2025-05-12 06:25] LABS: Hematocrit 38.5 % (36.0-46.0); Hemoglobin 13.2 g/dL (12.2-16.2); Mean Corpuscular Hemoglobin 31.1 pg (28.0-32.0); Mean Corpuscular Volume 90.9 fL (80.0-100.0); Nucleated Red Blood Cells % 0.0 %
[2025-05-12 07:01] LABS: Albumin 4.1 g/dL (3.2-4.8); Anion Gap 11 (5-15); Carbon Dioxide 22 mmol/L (20-31); Potassium 3.5 mmol/L (3.5-5.1); Sodium 141 mmol/L (136-145); Total Protein 6.4 g/dL (5.7-8.2)
[2025-05-12 07:02] LABS: Bilirubin, Total 0.8 mg/dL (0.2-1.0)
[2025-05-12 07:12] LABS: Alanine Aminotransferase 457 U/L (7-40); Alkaline Phosphatase 138 U/L (46-116); BUN/Creatinine Ratio 7.6 (10.0-20.0); Blood Urea Nitrogen < 5 mg/dL (9-23); Calcium 8.5 mg/dL (8.7-10.4); Chloride 108 mmol/L (98-107); Glucose 69 mg/dL (74-106); INR 1.03 (0.9-1.15); Partial Thromboplastin Time 29.3 SEC (24.5-34.5); Prothrombin Time 10.9 sec (9.3-11.8)
[2025-05-12 08:00] VITALS: PULSE 57; RESP 18; O2SAT 98
[2025-05-12 09:00] VITALS: BP 112/74; PULSE 57; RESP 16; TEMP 97.8; O2SAT 98
--- NOTE | 2025-05-12 10:15 | DVHINCON2 ---
Date of service: May 12, 2025 Family History: FH: hypothyroidism G8 MOTHER FH: sleep apnea G8 MOTHER Hypercholesterolemia G8 MOTHER G8 FATHER Hypertension G8 FATHER Allergies: Coded Allergies: NO KNOWN ALLERGIES (Unverified , 04/16/24) Home Meds No Active Prescriptions or Reported Meds Current Medications Current Medications Medications (Trade) Dose Ordered Sig/[place] Route PRN Reason Start Time Stop Time Status Last Admin Sodium Chloride 1,000 ml @ 75 mls/hr [id number] IV 05/11/25 14:00 05/11/25 16:34 Metronidazole 100 ml @ 100 mls/hr Q8HR IV 05/11/25 14:00 05/12/25 05:29 Vital Signs Vital Signs Date Time Temp Pulse Resp B/P (MAP) Pulse Ox O2 Delivery O2 Flow Rate FiO2 05/12/25 05:00 97.8 60 18 106/60 (75) 97 97.8 05/11/25 20:00 Room Air* 0 21 Labs/Diagnostic Data Labs Test 05/12/25 04:36 05/11/25 03:50 05/10/25 14:27 05/10/25 10:22 Range/Units White Blood Count 7.5 4.4-10.8 10^3/uL Red Blood Count 4.23 4.0-5.20 10^6/uL Hemoglobin 13.2 12.2-16.2 g/dL Hematocrit 38.5 36.0-46.0 % Mean Corpuscular Volume 90.9 80.0-100.0 fL Mean Corpuscular Hemoglobin 31.1 28.0-32.0 pg Mean Corpuscular Hemoglobin Concent 34.2 32.0-36.0 g/dL Red Cell Distribution Width 13.0 11.8-14.3 % Platelet Count 296 140-450 10^3/uL Mean Platelet Volume 8.7 6.9-10.8 fL Neutrophils (%) (Auto) 61.5 37.0-80.0 % Lymphocytes (%) (Auto) 30.6 10.0-50.0 % Monocytes (%) (Auto) 6.4 0.0-12.0 % Eosinophils (%) (Auto) 0.9 0.0-7.0 % Basophils (%) (Auto) 0.6 0.0-2.0 % Neutrophils # (Auto) 4.6 1.6-8.6 10 ^3/uL Lymphocytes # (Auto) 2.3 0.4-5.4 10 ^3/uL Monocytes # (Auto) 0.5 0-1.3 10 ^3/uL Eosinophils # (Auto) 0.1 0-0.8 10 ^3/uL Basophils # (Auto) 0 0-0.2 10 ^3/uL Nucleated Red Blood Cells 0.0 % Prothrombin Time 10.9 9.3-11.8 sec Prothrombin Time INR 1.03 0.9-1.15 Activated Partial Thromboplast Time 29.3 24.5-34.5 SEC Sodium Level 141 136-145 mmol/L Potassium Level 3.5 3.5-5.1 mmol/L Chloride Level 108 H 98-107 mmol/L Carbon Dioxide Level 22 20-31 mmol/L Anion Gap 11 5-15 Blood Urea Nitrogen < 5 L 9-23 mg/dL Creatinine 0.66 0.550-1.02 mg/dL Glomerular Filtration Rate Calc 118 >90 mL/min BUN/Creatinine Ratio 7.6 L 10.0-20.0 Serum Glucose 69 L 74-106 mg/dL Calcium Level 8.5 L 8.7-10.4 mg/dL Total Bilirubin 0.8 0.2-1.0 mg/dL Aspartate Amino Transferase (AST) 185 H 13-40 U/L Alanine Aminotransferase (ALT) 457 H 7-40 U/L Alkaline Phosphatase 138 H 46-116 U/L Total Protein 6.4 5.7-8.2 g/dL Albumin 4.1 3.2-4.8 g/dL Beta HCG, Quantitative 0.0 L 1.5-4.2 mIU/mL Anti-Nuclear Antibody Screen Negative Negative Magnesium Level 2.2 1.6-2.6 mg/dL Lipase 42 12-53 U/L Hepatitis A Antibody Total Positive H Negative Hepatitis B Surface Antigen Negative Negative Hepatitis B Surface Antibody Negative Negative Hepatitis B Core Total Antibody Negative Negative Hepatitis C Antibody Negative Negative Test 05/10/25 10:07 Range/Units Urine Color Dark-yellow Yellow Urine Clarity Clear Clear Urine pH 6.0 5.0-9.0 Urine Specific [place] 1.027 1.001-1.035 Urine Protein Negative Negative Urine Ketones Negative Negative Urine Blood 1+ H Negative /uL Urine Nitrite Negative Negative Urine Bilirubin 2+ H Negative Urine Urobilinogen 3 H Negative mg/dL Urine Leukocyte Esterase Trace Negative /uL Urine RBC 16 0 - 4 /hpf Urine Microscopic WBC 1 0-5 /HPF Urine Squamous Epithelial Cells Few <5 /hpf Urine Bacteria None seen None Seen /hpf Urine Glucose Normal Normal mg/dL Assessment 35 YEAR OLD FEMALE WITH ABDOMINAL PAIN AND CHOLELITHIASIS,BILIRUBIN AND lft'S I NITIALLY ELEVATED ON ADMISSION,NOW TRENDING DOWN, WBC NORMAL ,ABDOMEN NON TENDER, EXPLAINED OPERATION AND RISKS AND COMPLICATIONS AFTER WHICH PT STATED THAT SHE DOES NOT WANT AN OPERATION BUT WANTS TO TRY "THE NON OPERATIVE TREATMENT WITH MEDICATIONS". i EXPLAINED TO HER THAT THOSE TREATMENTS ARE NOT USUSALLY A GOOD CHOICE FOR A YOUNG PERSON WHO IS A GOOD CANDIDATE FOR AN OPERATION THEY TAKE LONG TIME TO DISSOLVE THE STONES,ALL OF WHICH ARE NOT DISSOLVABLE, AND THE GALLBLADDER WILL CONTINUE MAKING NEW STONES". SHE BECAME UPSET AND ASKED ME IF I AM ANGRY BECAUSE SHE DOES NOT WANT THE OPERATION AND I EXPLAINED THAT I AM NOT AT ALL ANGRY BUT THAT FOR THAT KIND OF TRETMENT SHE NEEDS TO TALK TO THE OTHER DOCTORS BECAUSE SURGEONS DONT DO THOSE TREATMENTS, PLEASE RECALL OF PATIENT CHANGES HER MIND Plan discussed with: Patient RENEE DAIGLE MD May 12, 2025 10:15
--- NOTE | 2025-05-12 11:48 | DVHPN2 ---
Subjective Patient reports abdominal pain and back pain has improved. Reviewed: Care Plan, H&P, Labs Changes from previous H/P or p: No Changes General: Per HPI Eyes: No Pain, No Vision change, No Conjunctivae inflammation, No Eyelid inflammation, No Other, No Redness ENT: No Ear pain, No Ear discharge, No Nose pain, No Nose discharge, No Nose congestion, No Mouth pain, No Mouth swelling, No Throat pain, No Throat swelling, No Other Cardiovascular: No Chest Pain, No Palpitations, No Orthopnea, No Paroxysmal Noc. Dyspnea, No Edema, No Lt Headedness, No Other Respiratory: No Cough, No Dry, No Shortness of breath, No SOB with excertion, No Wheezing, No Hemoptysis, No Pleuritic Pain, No Sputum, No Other Gastrointestinal: Nausea; No Vomiting; Abdominal Pain; No Diarrhea, No Constipation, No Melena, No Hematochezia; Other (bloating) Genitourinary: No Dysuria, No Frequency, No Incontinence, No Hematuria, No Retention; Other (orange urine) Musculoskeletal: No other, No neck pain, No shoulder pain, No arm pain, No back pain, No hand pain, No leg pain, No foot pain Skin: No Rash, No Lesions, No Jaundice, No Bruising, No Other Objective Vitals Vital Signs Date Time Temp Pulse Resp B/P (MAP) Pulse Ox O2 Delivery O2 Flow Rate FiO2 05/12/25 09:00 97.8 57 16 112/74 (87) 98 97.8 05/12/25 08:00 Room Air* 0 21 Intake/Output Intake and Output 05/12/25 07:00 Intake Total 1240 ml Balance 1240 ml Intake Oral 1040 ml IV Total 200 ml # Voids 10 General Appearance: Alert, Oriented X3, Cooperative HEENT: Atraumatic, PERRLA Cardiovascular: Normal S1, Normal S2 Abdomen: Normal bowel sounds, Soft, No tenderness, No hepatospenomegaly Back: Flank Tenderness Musculoskeletal: Normal sensory function, Normal motor function Skin: Dry, Intact Psych/Mental Status: Mental status NL, Mood NL Medications Current Medications Medications Dose Ordered Sig/[place] Route Start Time Stop Time Status Last Admin Dose Admin Acetaminophen/ Hydrocodone Bitart 1 tab Q4HP PRN PO 05/10/25 16:00 Ondansetron HCl 4 mg Q4HP PRN IV 05/10/25 16:00 05/10/25 23:46 4 MG Docusate Sodium 100 mg BIDPRN PRN PO 05/10/25 16:00 Acetaminophen 650 mg Q6HP PRN PO 05/10/25 16:00 Sodium Chloride 1,000 ml @ 75 mls/hr [id number] IV 05/11/25 14:00 05/11/25 16:34 75 MLS/HR Metronidazole 100 ml @ 100 mls/hr Q8HR IV 05/11/25 14:00 05/12/25 05:29 100 MLS/HR Laboratory Results Laboratory Tests 05/12/25 04:36 Chemistry Test 05/12/25 04:36 Albumin 4.1 g/dL (3.2-4.8) Calcium Level 8.5 mg/dL (8.7-10.4) L Total Protein 6.4 g/dL (5.7-8.2) Coagulation Test 05/12/25 04:36 Prothrombin Time 10.9 sec (9.3-11.8) Prothrombin Time INR 1.03 (0.9-1.15) Activated Partial Thromboplast Time 29.3 SEC (24.5-34.5) LFT Test 05/12/25 04:36 Alanine Aminotransferase (ALT) 457 U/L (7-40) H Alkaline Phosphatase 138 U/L (46-116) H Aspartate Amino Transferase (AST) 185 U/L (13-40) H Total Bilirubin 0.8 mg/dL (0.2-1.0) Urinalysis Test 05/10/25 10:07 Urine Color Dark-yellow (Yellow) Urine Clarity Clear (Clear) Urine pH 6.0 (5.0-9.0) Urine Specific [place] 1.027 (1.001-1.035) Urine Protein Negative (Negative) Urine Ketones Negative (Negative) Urine Blood 1+ /uL (Negative) H Urine Nitrite Negative (Negative) Urine Bilirubin 2+ (Negative) H Urine Urobilinogen 3 mg/dL (Negative) H Urine Leukocyte Esterase Trace /uL (Negative) Urine RBC 16 /hpf (0 - 4) Urine Microscopic WBC 1 /HPF (0-5) Urine Squamous Epithelial Cells Few /hpf (<5) Urine Bacteria None seen /hpf (None Seen) Urine Glucose Normal mg/dL (Normal) Labs and/or images reviewed: Labs reviewed by me, Image(s) reviewed by me Assessment/Plan Assessment/Plan Impression: -cholelithiasis, rule out choledocholithiasis -obesity -PCOS -transaminitis,? Hepatitis Plan: Events: Patient not agreeable to having surgery at this time. Patient requesting medication to dissolve her gallstones. Educated patient that standard treatment plan for cholelithiasis with cholecystitis is cholecystectomy. Patient will notify primary nurse what her decision is regarding surgery versus being discharged home. -continue IV fluids, Flagyl -pain management -continue NPO until patient makes a decision. -GI consultation -surgical consultation -repeat labs in a.m. Total time spent with patient discussing and formulating plan of care: 35 minutes. This medical document was created using an electronic medical record system with [employer]ation system. Although this document has been carefully reviewed, there may still be some phonetic and typographical errors. These areas are purely typographical due to imperfections of the software programs, and do not reflect any compromise in the patient's medical care. Plan discussed with: Patient, Other (RN) My Orders Orders - BRYNN ANAYA NP Procedure Category Date Status Time Mrcp Mri MRI 05/11/25 Resulted 13:38 * Surgical Consult CONS 05/11/25 Transmitted Sodium Chloride 0.9% PHA 05/11/25 In Process 14:00 Metronidazole PHA 05/11/25 In Process 500mg/100ml (Flagyl 14:00 Npo (Nothing By DIET 05/12/25 Transmitted Mouth) Diet Breakfast Date of Service: May 12, 2025 Billing Provider: BRYNN ANAYA NP Common Visit Codes: [id number] INP/OBS CARE(HIGH) BRYNN ANAYA NP May 12, 2025 11:48
[2025-05-12 13:00] VITALS: BP 105/67; PULSE 62; RESP 17; TEMP 98.4; O2SAT 97
--- NOTE | 2025-05-12 13:40 | DVHDS2 ---
Discharge Summary Date of Admission May 10, 2025 at 15:53 Date of Discharge: May 12, 2025 Admitting Diagnosis Cholelithiasis Labs/Diagnostic Data: Laboratory Results Test 05/12/25 04:36 05/11/25 03:50 05/10/25 14:27 05/10/25 10:22 White Blood Count 7.5 10^3/uL (4.4-10.8) Red Blood Count 4.23 10^6/uL (4.0-5.20) Hemoglobin 13.2 g/dL (12.2-16.2) Hematocrit 38.5 % (36.0-46.0) Mean Corpuscular Volume 90.9 fL (80.0-100.0) Mean Corpuscular Hemoglobin 31.1 pg (28.0-32.0) Mean Corpuscular Hemoglobin Concent 34.2 g/dL (32.0-36.0) Red Cell Distribution Width 13.0 % (11.8-14.3) Platelet Count 296 10^3/uL (140-450) Mean Platelet Volume 8.7 fL (6.9-10.8) Neutrophils (%) (Auto) 61.5 % (37.0-80.0) Lymphocytes (%) (Auto) 30.6 % (10.0-50.0) Monocytes (%) (Auto) 6.4 % (0.0-12.0) Eosinophils (%) (Auto) 0.9 % (0.0-7.0) Basophils (%) (Auto) 0.6 % (0.0-2.0) Neutrophils # (Auto) 4.6 10 ^3/uL (1.6-8.6) Lymphocytes # (Auto) 2.3 10 ^3/uL (0.4-5.4) Monocytes # (Auto) 0.5 10 ^3/uL (0-1.3) Eosinophils # (Auto) 0.1 10 ^3/uL (0-0.8) Basophils # (Auto) 0 10 ^3/uL (0-0.2) Nucleated Red Blood Cells 0.0 % Prothrombin Time 10.9 sec (9.3-11.8) Prothrombin Time INR 1.03 (0.9-1.15) Activated Partial Thromboplast Time 29.3 SEC (24.5-34.5) Sodium Level 141 mmol/L (136-145) Potassium Level 3.5 mmol/L (3.5-5.1) Chloride Level 108 mmol/L (98-107) Carbon Dioxide Level 22 mmol/L (20-31) Anion Gap 11 (5-15) Blood Urea Nitrogen < 5 mg/dL (9-23) Creatinine 0.66 mg/dL (0.550-1.02) Glomerular Filtration Rate Calc 118 mL/min (>90) BUN/Creatinine Ratio 7.6 (10.0-20.0) Serum Glucose 69 mg/dL (74-106) Calcium Level 8.5 mg/dL (8.7-10.4) Total Bilirubin 0.8 mg/dL (0.2-1.0) Aspartate Amino Transferase (AST) 185 U/L (13-40) Alanine Aminotransferase (ALT) 457 U/L (7-40) Alkaline Phosphatase 138 U/L (46-116) Total Protein 6.4 g/dL (5.7-8.2) Albumin 4.1 g/dL (3.2-4.8) Beta HCG, Quantitative 0.0 mIU/mL (1.5-4.2) Anti-Nuclear Antibody Screen Negative (Negative) Magnesium Level 2.2 mg/dL (1.6-2.6) Lipase 42 U/L (12-53) Hepatitis A Antibody Total Positive (Negative) Hepatitis B Surface Antigen Negative (Negative) Hepatitis B Surface Antibody Negative (Negative) Hepatitis B Core Total Antibody Negative (Negative) Hepatitis C Antibody Negative (Negative) Test 05/10/25 10:07 Urine Color Dark-yellow (Yellow) Urine Clarity Clear (Clear) Urine pH 6.0 (5.0-9.0) Urine Specific [place] 1.027 (1.001-1.035) Urine Protein Negative (Negative) Urine Ketones Negative (Negative) Urine Blood 1+ /uL (Negative) Urine Nitrite Negative (Negative) Urine Bilirubin 2+ (Negative) Urine Urobilinogen 3 mg/dL (Negative) Urine Leukocyte Esterase Trace /uL (Negative) Urine RBC 16 /hpf (0 - 4) Urine Microscopic WBC 1 /HPF (0-5) Urine Squamous Epithelial Cells Few /hpf (<5) Urine Bacteria None seen /hpf (None Seen) Urine Glucose Normal mg/dL (Normal) Other Laboratory Tests 05/12/25 04:36 Brief Hx & Hospital Course: History of Present Illness Cadence Jackson is a 35-year-old female with past medical history of PCOS, who came to the hospital for abdominal and back pain. Patient states she began experiencing abdominal and back pain last (05/05/2025). The pain was intermittent, worse after eating, with associated nausea. Patient also states she has been experiencing bloating, her urine has become an orange color, and she is having frequency, denies any pain with urination. She came to the hospital today due to her symptoms increasing. In ER her bilirubin and liver enzymes are elevated. Ultrasound of abdomen shows cholelithiasis. Patient was admitted in February 2024 for similar complaints. Her liver enzymes were elevated at that times as but, not as elevated as they are now. At that time she was told to follow up with GI as an outpatient. She went to her primary care provider, who did labs, then told her she was fine and would not give her the GI referral. She has sense changed primary care providers and has an appointment later this month. Course of Hospitalization: HIDA Scan positive for chronic choledocholithiasis. MRCP negative for choledocholithiasis. Surgical consultation was placed. Patient wishing to speak to PCP before proceeding with surgery. LFTs are downtrending. Patient will be discharged home with patient to visit PCP, Dr. Bishop next week. Patient will kept on Flagyl 500mg po q8hrs x 5 days. Physical examination: General: Alert and Oriented x3. No acute distress. Well-nourished. Obese Eyes: EOMI. Anicteric. HENT: Moist mucous membranes. Lungs: Clear to auscultation bilaterally. No accessory muscle use. Cardiovascular: Regular rate and rhythm. No murmur. No JVD. Abdomen: Soft, non-tender and non-distended. No palpable masses. Extremities: No edema. Non-tender. Skin: No rashes or lesions. Warm. Neurologic: No focal neurological deficits. CN II-XII grossly intact, but not individually tested. Psychiatric: Cooperative. Appropriate mood and affect. Total time spent with patient discussing and formulating plan of care: 35 minutes. This medical document was created using an electronic medical record system with [employer] dictation system. Although this document has been carefully reviewed, there may still be some phonetic and typographical errors. These areas are purely typographical due to imperfections of the software programs, and do not reflect any compromise in the patient's medical care. Condition at Discharge: Fair Final Diagnosis/Problems List Cholelithiasis Secondary diagnosis: -obesity -PCOS -transaminitis,? Hepatitis Discharge Disposition: Home Discharge Instruct/Medications Diet: Regular Activity: No Restrictions, As Tolerated Follow Up/Referral: PCP Dr. Bishop Medications: Flagyl 500mg po q8hrs x 5 days No Active Prescriptions or Reported Meds 36 Discharge Statement: "Patient was advised to return to the ER or call 911 if any headaches, dizziness, shortness of breath, chest pain, abdominal pain, bleeding, fevers, or worsening of medical condition. Patient was counseled about treatment plan, medications, possible side effects, patientverbalized understanding. All questions were answered to the best of my ability. This discharge took greater then 30 minutes in planning, reviewing documentation, counseling the patient, and discussing with other team members." ASSESSMENT ASSESSMENT Assessment Cholelithiasis Date of Service: May 12, 2025 Billing Provider: BRYNN ANAYA NP Common Visit Codes: 86299-HGG/OBS DISCH DAY >30min BRYNN ANAYA NP May 12, 2025 13:40
[2025-05-12] MEDS ORDERED: METR-344 PO (13:41)
[2025-05-12 14:05] VITALS: BP 105/67; PULSE 62; RESP 18; TEMP 98.4; O2SAT 97
--- NOTE | 2025-05-12 22:27 | DVHPN2 ---
Progress Note - Dictate Date Seen: May 12, 2025 (Late entryTime of visit 1 pm) Medical Necessity Reason Pt with a Central, PICC or Fol: No Subjective No new complaints Patient states abdominal pain is better Patient was given diagnosis of cholelithiasis vital signs Vital Sign Date Time Temp Pulse Resp B/P (MAP) Pulse Ox O2 Delivery O2 Flow Rate FiO2 05/12/25 14:05 98.4 62 18 97 05/12/25 13:00 105/67 (80) 05/12/25 08:00 Room Air* 0 21 Total Intake and Output 05/11/25 05/11/25 05/12/25 15:00 23:00 07:00 Intake Total 840 ml 400 ml Balance 840 ml 400 ml objective General Appearance: Alert, Oriented X3, Cooperative HEENT: Atraumatic, PERRLA Cardiovascular: Normal S1, Normal S2 Abdomen: Normal bowel sounds, Soft, No tenderness, No hepatospenomegaly Back: Flank Tenderness Musculoskeletal: Normal sensory function, Normal motor function Skin: Dry, Intact Psych/Mental Status: Mental status NL, Mood NL laboratory and microbiology Laboratory Tests 05/12/25 04:36 Test 05/12/25 04:36 Range/Units Serum Glucose 69 L 74-106 mg/dL HIDA SCAN Impression: 1. Delayed imaging of gallbladder suggesting partial obstruction possibly from chronic cholecystitis. May consider MRCP for further evaluation MRCP IMPRESSION: Cholelithiasis without choledocholithiasis. Problems(with codes): (1) Cholelithiasis (2) Transaminitis (3) Nausea (4) Epigastric abdominal pain Prognosis Plan Discharge planning is in progress Continue oral antibiotics Patient is refusing or cholecystectomy at this time Outpatient follow up with GI Services to continue to monitor the patient's condition Plan discussed with: Other (Liset Vasquez) LAURIE DUDLEY MD May 12, 2025 22:27
== END 2025-05-12 14:28 | disposition home or self-care (01) ==
LOC: ER 09:37 → OVERFLOW 15:53 → WEST WING 05-11 06:12
PROVIDERS: ADMIT Nurse Practitioner Acute Care; ATTEND Nurse Practitioner Acute Care
DX: K80.20 Calculus of gallbladder without cholecystitis without obstruction (principal); K75.9 Inflammatory liver disease, unspecified; E28.2 Polycystic ovarian syndrome; E66.9 Obesity, unspecified; Z68.37 Body mass index [BMI] 37.0-37.9, adult; M54.9 Dorsalgia, unspecified; R79.89 Other specified abnormal findings of blood chemistry; Z83.42 Family history of familial hypercholesterolemia; Z83.49 Family history of other endocrine, nutritional and metabolic diseases; Z82.49 Family history of ischemic heart disease and other diseases of the circulatory system
CPT/HCPCS: 36415; 74176; 74181; 76705; 78226; 80053; 81001; 83690; 83735; 84702; 85025; 85610; 85730; 86038; 86704; 86706; 86708; 86803; 87340; G0378; J2405; J3490